=== PATIENT | male | born 1980 | race African-American/Black ===

== ENCOUNTER 2021-03-09 12:10 | Emergency (ER) | payer MEDICAID ==
[~2021-03-09] VITALS: Ht 175.3 cm; Wt 122.0 kg
[~2021-03-09 12:10] MED LIST: NORPTMEDS CO
[2021-03-09 13:29] LABS: Basophils # (auto) 0.1 10 ^3/uL (0-0.2); Basophils % (auto) 1.1 % (0.0-2.0); Eosinophils # (auto) 0.1 10 ^3/uL (0-0.8); Hematocrit 48.4 % (41.0-53.0); Lymphocytes # (auto) 2.7 10 ^3/uL (0.4-5.4); Lymphocytes % (auto) 41.4 % (10.0-50.0); Mean Corpuscular Hemoglobin 29.8 pg (28.0-32.0); Mean Corpuscular Volume 90.2 fL (80.0-100.0); Monocytes # (auto) 0.4 10 ^3/uL (0-1.3); Monocytes % (auto) 6.7 % (0.0-12.0); Neutrophils # (auto) 3.3 10 ^3/uL (1.6-8.6); Neutrophils % (auto) 49.8 % (37.0-80.0); Nucleated Red Blood Cells % 0.2 %; Platelet Count (auto) 259 10^3/uL (140-450); Red Blood Cells 5.37 10^6/uL (4.5-5.90); Red Cell Distribution Width 14.5 % (11.8-14.3); White Blood Cell 6.5 10^3/uL (4.4-10.8)
[2021-03-09 13:49] LABS: Albumin 3.8 g/dL (3.4-5.0); Magnesium 2.4 mg/dL (1.6-2.6)
[2021-03-09 13:53] LABS: BUN/Creatinine Ratio 10.3; Bilirubin, Total 0.4 mg/dL (0.2-1.0); Total Protein 8.3 g/dL (6.4-8.2)
[2021-03-09 14:06] VITALS: BP 171/110
[2021-03-09] MEDS ORDERED: cloNIDine HCL 0.1 MG TAB PO ONE (14:15)
== END 2021-03-09 15:50 | disposition home or self-care (01) ==
LOC: ER 12:10 → EDBD 12:10 → ER 15:50
DX: I47.1 Supraventricular tachycardia (principal); I10 Essential (primary) hypertension; Z88.1 Allergy status to other antibiotic agents; Z88.2 Allergy status to sulfonamides
CPT/HCPCS: 36415; 80053; 83735; 85025; 93005

== ENCOUNTER 2022-05-11 19:07 | Emergency (ER) | payer MEDICAID ==
[~2022-05-11] VITALS: Ht 172.7 cm; Wt 120.0 kg
[2022-05-11 20:54] LABS: Basophils # (auto) 0 10 ^3/uL (0-0.2); Basophils % (auto) 0.7 % (0.0-2.0); Eosinophils # (auto) 0.1 10 ^3/uL (0-0.8); Eosinophils % (auto) 0.9 % (0.0-7.0); Hematocrit 46.1 % (41.0-53.0); Hemoglobin 15.3 g/dL (13.5-17.5); Lymphocytes # (auto) 2.2 10 ^3/uL (0.4-5.4); Lymphocytes % (auto) 32.7 % (10.0-50.0); Mean Corpuscular Hemoglobin 29.8 pg (28.0-32.0); Mean Corpuscular Hgb Conc. 33.1 g/dL (32.0-36.0); Mean Corpuscular Volume 90.1 fL (80.0-100.0); Monocytes # (auto) 0.7 10 ^3/uL (0-1.3); Monocytes % (auto) 9.9 % (0.0-12.0); Neutrophils # (auto) 3.7 10 ^3/uL (1.6-8.6); Neutrophils % (auto) 55.8 % (37.0-80.0); Red Blood Cells 5.12 10^6/uL (4.5-5.90); Red Cell Distribution Width 13.8 % (11.8-14.3); White Blood Cell 6.6 10^3/uL (4.4-10.8)
[2022-05-11 21:11] LABS: Potassium 3.5 mmol/L (3.5-5.1)
[2022-05-11 21:12] LABS: INR 0.99 (0.9-1.15); Partial Thromboplastin Time 29.3 sec (24.6-33.4)
[2022-05-11 21:28] LABS: BUN/Creatinine Ratio 7.9; Bilirubin, Total 0.3 mg/dL (0.2-1.0); Total Protein 8.3 g/dL (6.4-8.2)
[2022-05-11 22:20] LABS: Urine Bacteria FEW /hpf (None Seen); Urine Blood Negative /uL (Negative); Urine Mucus FEW (None Seen); Urine Specific Gravity 1.035 (1.001-1.035); Urine WBC 2 /hpf (0 - 3)
[2022-05-12 00:15] VITALS: BP 180/116
== END 2022-05-12 01:34 | disposition home or self-care (01) ==
LOC: ER 19:07
DX: I16.0 Hypertensive urgency (principal); I10 Essential (primary) hypertension; R42 Dizziness and giddiness; Z88.1 Allergy status to other antibiotic agents; Z88.2 Allergy status to sulfonamides
CPT/HCPCS: 36415; 70450; 80053; 81001; 84484; 85025; 85610; 85730; 93005

== ENCOUNTER 2022-11-22 09:20 | Emergency (ER) | payer MEDICAID ==
[~2022-11-22] VITALS: Ht 172.7 cm; Wt 126.0 kg
[2022-11-22 09:45] LABS: Basophils # (auto) 0.1 10 ^3/uL (0-0.2); Basophils % (auto) 1.1 % (0.0-2.0); Eosinophils # (auto) 0.2 10 ^3/uL (0-0.8); Eosinophils % (auto) 3.5 % (0.0-7.0); Hemoglobin 15.6 g/dL (13.5-17.5); Lymphocytes # (auto) 2.3 10 ^3/uL (0.4-5.4); Lymphocytes % (auto) 36.9 % (10.0-50.0); Mean Corpuscular Hemoglobin 30.9 pg (28.0-32.0); Mean Corpuscular Hgb Conc. 34.6 g/dL (32.0-36.0); Mean Corpuscular Volume 89.2 fL (80.0-100.0); Monocytes # (auto) 0.5 10 ^3/uL (0-1.3); Monocytes % (auto) 7.5 % (0.0-12.0); Neutrophils # (auto) 3.2 10 ^3/uL (1.6-8.6); Nucleated Red Blood Cells % 0.1 %; Red Blood Cells 5.04 10^6/uL (4.5-5.90); White Blood Cell 6.2 10^3/uL (4.4-10.8)
[2022-11-22] MEDS ORDERED: ASPirin 81 mg TAB PO ONE (10:00)
[2022-11-22 10:03] LABS: Albumin 3.9 g/dL (3.4-5.0); Calcium 8.9 mg/dL (8.5-10.1)
[2022-11-22 10:06] LABS: BUN/Creatinine Ratio 9.3; Bilirubin, Total 0.4 mg/dL (0.2-1.0); Total Protein 7.4 g/dL (6.4-8.2)
[2022-11-22 10:21] LABS: Urine Bacteria NONE SEEN /hpf (None Seen); Urine Blood Negative /uL (Negative); Urine Mucus FEW (None Seen); Urine Specific Gravity 1.018 (1.001-1.035); Urine WBC <1 /hpf (0 - 3)
[2022-11-22] MEDS ORDERED: ONDA-144 PO (11:46)
[2022-11-22 13:29] VITALS: BP 155/97
== END 2022-11-22 13:32 | disposition home or self-care (01) ==
LOC: ER 09:20
DX: R10.9 Unspecified abdominal pain (principal); R11.10 Vomiting, unspecified; Z88.2 Allergy status to sulfonamides; Z88.8 Allergy status to other drugs, medicaments and biological substances; E78.5 Hyperlipidemia, unspecified; I10 Essential (primary) hypertension
CPT/HCPCS: 36415; 71045; 74176; 80053; 81001; 84484; 85025; 93005

== ENCOUNTER 2023-11-03 11:22 | Emergency (ER) | payer MEDICAID ==
[~2023-11-03] VITALS: Ht 172.7 cm; Wt 109.0 kg
[~2023-11-03 11:22] MED LIST changes: +ONDA-144 PO
[2023-11-03 11:56] LABS: Basophils # (auto) 0.1 10 ^3/uL (0-0.2); Basophils % (auto) 1.1 % (0.0-2.0); Eosinophils # (auto) 0.1 10 ^3/uL (0-0.8); Eosinophils % (auto) 0.8 % (0.0-7.0); Hematocrit 45.3 % (41.0-53.0); Hemoglobin 14.9 g/dL (13.5-17.5); Lymphocytes # (auto) 2.7 10 ^3/uL (0.4-5.4); Lymphocytes % (auto) 45.5 % (10.0-50.0); Mean Corpuscular Hemoglobin 29.5 pg (28.0-32.0); Mean Corpuscular Hgb Conc. 32.9 g/dL (32.0-36.0); Mean Corpuscular Volume 89.7 fL (80.0-100.0); Monocytes # (auto) 0.5 10 ^3/uL (0-1.3); Monocytes % (auto) 8.5 % (0.0-12.0); Neutrophils # (auto) 2.7 10 ^3/uL (1.6-8.6); Neutrophils % (auto) 44.1 % (37.0-80.0); Nucleated Red Blood Cells % 0.1 %; Red Blood Cells 5.04 10^6/uL (4.5-5.90); Red Cell Distribution Width 14.4 % (11.8-14.3)
[2023-11-03 12:11] LABS: Alanine Aminotransferase 20 U/L (7-40); Albumin 4.3 g/dL (3.2-4.8); Alkaline Phosphatase 104 U/L (46-116); Anion Gap 6 (5-15); Aspartate Aminotransferase 12 U/L (13-40); BUN/Creatinine Ratio 10.8 (10.0-20.0); Blood Urea Nitrogen 11 mg/dL (9-23); Calcium 9.2 mg/dL (8.7-10.4); Carbon Dioxide 25 mmol/L (20-30); Chloride 107 mmol/L (98-107); Glucose 99 mg/dL (74-106); Magnesium 1.9 mg/dL (1.6-2.6); Potassium 3.9 mmol/L (3.5-5.1); Sodium 138 mmol/L (136-145)
[2023-11-03 12:12] LABS: Bilirubin, Total 0.5 mg/dL (0.2-1.0); Total Protein 7.1 g/dL (5.7-8.2)
[2023-11-03 12:33] LABS: INR 1.03 (0.9-1.15); Partial Thromboplastin Time 31.1 SEC (24.5-34.5); Prothrombin Time 10.8 sec (9.3-11.8)
[2023-11-03 16:52] VITALS: BP 187/116; PULSE 61; RESP 18; TEMP 99.3; O2SAT 98
== END 2023-11-03 16:53 | disposition home or self-care (01) ==
LOC: EDBD 11:22 → ER 11:22
DX: R00.2 Palpitations (principal); R42 Dizziness and giddiness; I10 Essential (primary) hypertension; E78.5 Hyperlipidemia, unspecified; Z88.1 Allergy status to other antibiotic agents; Z88.2 Allergy status to sulfonamides
CPT/HCPCS: 36415; 71045; 80053; 83735; 83880; 84484; 85025; 85610; 85730; 93005

== ENCOUNTER 2025-04-06 00:14 | Emergency (ER) | payer MEDICAID ==
[~2025-04-06] VITALS: Ht 170.2 cm; Wt 131.0 kg
--- NOTE | 2025-04-06 00:40 | ED.PDOC ---
General HPI Comments 44-year-old male with a history of hypertension, dyslipidemia and kidney stones brought in by family complaining of right flank pain. Patient states since 5:00 p.m. yesterday, he has been having constant, aching right flank pains, radiating to his back, associated with chills, nausea and vomiting. Patient states pain is similar to when he had kidney stones before. Patient states he took ibuprofen 800 mg without relief. He denies any fever, diarrhea, constipation, dysuria or hematuria. Chief Complaint: Flank Pain Time Seen by MD: 00:40 Primary Care Provider: HOME Reviewed notes: Nurses Notes Allergies: Coded Allergies: Sulfamethoxazole w/Trimethoprim (Verified Allergy, Mild, HIVES/ RASH, 03/22/10) Clindamycin (Verified Allergy, Unknown, 03/09/21) Doxycycline (Verified Allergy, Unknown, HIVES/ RASH, 03/09/21) Cephalexin (Verified Adverse Reaction, Mild, 03/06/10) Home Meds Active Scripts Tamsulosin Hcl (Flomax) 0.4 Mg Cap, 1 CAP PO DAILY, #20 CAP 11 Refills Prov:KIMBER LOVE MD 04/06/25 Ondansetron Odt 4MG Tab (ZOFRAN PO) 4 Mg Tb, 4 MG PO TID PRN, #30 TAB Prn nausea/vomiting ODT TAB-DISSOLVE IN MOUTH, THEN SWALLOW Prov:KIMBER LOVE MD 04/06/25 Hydrocodone-Acetaminophen (Hydrocodone Bitartrate/AC 10-325 mg) 1 Tab Tab, 1-2 TAB PO Q6HP PRN, #30 TAB Prn pain Prov:KIMBER LOVE MD 04/06/25 Ondansetron (Zofran) 4 Mg Tab, 1 TAB PO Q6HR, #20 TAB Prov:TAMMY KAN MD 11/22/22 Reported Medications No Reported Medication (NO REPORTED MEDICATION) Ea, Candida CO UNK PATIENT HAS NO REPORTED MEDICATIONS 07/28/13 Information Source: Patient Mode of Arrival: Ambulatory Severity: Moderate Inability to void: Mild Timing: Hours Duration: Intermittent Has not urinated for: Minutes Prehospital treatment: Treatment History of: Kidney stone Location: (R) Flank associated signs and symptoms: Fever, Nausea, Vomiting, Flank Pain, Back Pain Past Medical History PAST MEDICAL HISTORY: High Lipids, HTN, Kidney Stones Surgical History (Other): Circumcision Family History Family History: Family hx of DM, Family hx of HTN Social History Smoker: Non-Smoker Alcohol: Denies ETOH Use Drugs: Denies Drug Use Lives In: Home Constitutional: denies: chills, diaphoresis, fatigue, fever, malaise, sweats, weakness, others EENTM: denies: blurred vision, double vision, ear bleeding, ear discharge, ear drainage, ear pain, ear ringing, eye pain, eye redness, hearing loss, mouth pain, mouth swelling, nasal discharge, nose bleeding, nose congestion, nose pain, photophobia, tearing, throat pain, throat swelling, voice changes, others Respiratory: denies: cough, hemoptysis, orthopnea, SOB at rest, shortness of breath, SOB with excertion, stridor, wheezing, others Cardiovascular: denies: chest pain, dizzy spells, diaphoresis, Dyspnea on exertion, edema, irregular heart beat, left arm pain, lightheadedness, palpitations, PND, syncope, others Gastrointestinal: reports: nausea, vomiting; denies: abdomen distended, a bdominal pain, blood streaked bowels, constipated, diarrhea, dysphagia, difficulty swallowing, hematemesis, melena, poor appetite, poor fluid intake, rectal bleeding, rectal pain, others Genitourinary: reports: flank pain; denies: burning, dysuria, frequency, hematuria, incontinence, penile discharge, penile sore, pain, testicle pain, testicle swelling, urgency, others Neurological: denies: dizziness, fainting, headache, left sided numbness, left sided weakness, numbness, paresthesia, pre-existing deficit, right sided numbness, right sided weakness, seizure, speech problems, tingling, tremors, weakness, others Musculoskeletal: reports: back pain; denies: gout, joint pain, joint swelling, muscle pain, muscle stiffness, neck pain, others Integumetry: denies: bruises, change in color, change in hair/nails, dryness, laceration, lesions, lumps, rash, wounds, others Allergic/Immunocompromised: denies: Difficulty Healing, Frequent Infections, Hives, Itching, others Hematologic/Lymphatic: denies: anemia, blood clots, easy bleeding, easy bruising, swollen glands, others Endocrine: denies: excessive hunger, excessive sweating, excessive thirst, excessive urination, flushing, intolerance to cold, intolerance to heat, unexplained weight gain, unexplained weight loss, others Psychiatric: denies: anxiety, bipolar disorder, depression, hopeless, panic disorder, schizophrenia, sleepless, suicidal, others Physical Exam General Appearance: Mild Distress, Obese HEENT: Other (Pupils and face symmetric. Moist mucous membranes.) Neck: Full Range of Motion, Normal Inspection Respiratory: Lungs Clear, No Accessory Muscle Use, No Respiratory Distress, Normal Breath Sounds Cardiovascular: No Edema, No JVD, Regular Rate/Rhythm Breast Exam: Deferred Gastrointestinal: Soft, Other (Right upper flank tenderness to palpation) Genitalia: Deferred Pelvic: Deferred Rectal: Deferred Extremities: Normal inspection, Normal range of motion, Non-tender, No pedal ed abigail Neurologic: Alert (Oriented x4), Normal Affect, Normal Mood, Other (Ambulatory) Cerebellar Function: NOT DONE Reflexes: NOT DONE Skin: Dry, Normal Color, Warm Lymphatic: NOT DONE Was a procedure done? Was a procedure done?: No Differential Diagnosis Kidney stone (Female): N/A Kidney stone (Male): Pyelonephritis, Renal failure, Strain, Urinary obstruction, Urolithiasis, Renal infarction, Urinary tract infection X-Ray, Labs, Meds, VS Vital Signs Date Time Temp Pulse Resp B/P (MAP) Pulse Ox O2 Delivery O2 Flow Rate FiO2 04/06/25 03:00 90 19 134/72 (92) 95 04/06/25 02:58 90 19 134/72 04/06/25 02:28 89 12 159/96 04/06/25 01:41 92 11 166/101 (122) 95 04/06/25 01:38 90 13 166/101 04/06/25 01:27 Room Air* 0 21 04/06/25 01:21 98.6 85 18 181/96 (124) 97 98.6 04/06/25 01:08 89 18 162/107 04/06/25 00:35 98.4 89 18 162/107 (125) 97 98.4 04/06/25 00:35 89 18 97 Room Air 04/06/25 00:35 98.4 88 18 162/107 (125) 97 98.4 Lab Test 04/06/25 01:30 04/06/25 00:49 Range/Units Urine Color Colorless Yellow Urine Clarity Turbid H Clear Urine pH 8.0 5.0-9.0 Urine Specific [place] 1.015 1.001-1.035 Urine Protein Negative Negative Urine Ketones 1+ H Negative Urine Blood Negative Negative /uL Urine Nitrite Negative Negative Urine Bilirubin Negative Negative Urine Urobilinogen Normal Negative mg/dL Urine Leukocyte Esterase Negative Negative /uL Urine RBC 6 0 - 3 /hpf Urine Microscopic WBC < 1 0-3 /HPF Urine Squamous Epithelial Cells None seen <5 /hpf Urine Bacteria None seen None Seen /hpf Urine Glucose Normal Normal mg/dL White Blood Count 10.1 4.4-10.8 10^3/uL Red Blood Count 5.13 4.5-5.90 10^6/uL Hemoglobin 15.2 13.5-17.5 g/dL Hematocrit 46.1 41.0-53.0 % Mean Corpuscular Volume 89.8 80.0-100.0 fL Mean Corpuscular Hemoglobin 29.6 28.0-32.0 pg Mean Corpuscular Hemoglobin Concent 33.0 32.0-36.0 g/dL Red Cell Distribution Width 14.2 11.8-14.3 % Platelet Count 252 140-450 10^3/uL Mean Platelet Volume 8.9 6.9-10.8 fL Neutrophils (%) (Auto) 67.4 37.0-80.0 % Lymphocytes (%) (Auto) 23.8 10.0-50.0 % Monocytes (%) (Auto) 7.9 0.0-12.0 % Eosinophils (%) (Auto) 0.4 0.0-7.0 % Basophils (%) (Auto) 0.5 0.0-2.0 % Neutrophils # (Auto) 6.8 1.6-8.6 10 ^3/uL Lymphocytes # (Auto) 2.4 0.4-5.4 10 ^3/uL Monocytes # (Auto) 0.8 0-1.3 10 ^3/uL Eosinophils # (Auto) 0 0-0.8 10 ^3/uL Basophils # (Auto) 0.1 0-0.2 10 ^3/uL Nucleated Red Blood Cells 0.1 % Sodium Level 142 136-145 mmol/L Potassium Level 4.1 3.5-5.1 mmol/L Chloride Level 107 98-107 mmol/L Carbon Dioxide Level 25 20-31 mmol/L Anion Gap 10 5-15 Blood Urea Nitrogen 15 9-23 mg/dL Creatinine 1.45 H 0.700-1.30 mg/dL Glomerular Filtration Rate Calc 61 >90 mL/min BUN/Creatinine Ratio 10.3 10.0-20.0 Serum Glucose 125 H 74-106 mg/dL Lactic Acid Level 1.7 0.4-2.0 mmol/L Calcium Level 9.5 8.7-10.4 mg/dL Total Bilirubin 0.3 0.2-1.0 mg/dL Aspartate Amino Transferase (AST) 24 13-40 U/L Alanine Aminotransferase (ALT) 37 7-40 U/L Alkaline Phosphatase 141 H 46-116 U/L Total Protein 7.8 5.7-8.2 g/dL Albumin 4.5 3.2-4.8 g/dL Current Medications Medications (Trade) Dose Ordered Sig/Suzanne Route Start Time Stop Time Status Last Admin Sodium Chloride 1,000 ml @ 1,000 mls/hr Q1H ONCE IV 04/06/25 00:30 04/06/25 01:29 DC 04/06/25 00:54 Morphine Sulfate 4 mg ONCE ONCE IV 04/06/25 00:30 04/06/25 00:33 DC 04/06/25 01:08 Ondansetron HCl (Zofran) 4 mg ONCE ONCE IV 04/06/25 00:30 04/06/25 00:33 VT 04/06/25 01:09 Magnesium Sulfate/ Dextrose 100 ml @ 100 mls/hr O IV 04/06/25 00:30 04/06/25 03:40 VT 04/06/25 02:27 Ketorolac Tromethamine (Toradol Injection) 15 mg ONCE ONCE IV 04/06/25 02:15 04/06/25 02:16 DC 04/06/25 02:27 Hydromorphone HCl (Dilaudid Injection) 1 mg ONCE ONCE IV 04/06/25 02:15 04/06/25 02:16 DC 04/06/25 02:28 PROCEDURE(s): ABPL - CT AB PEL WO CON-NO ORAL OR IV REASON: R flank pain r/o stone ORDER NUMBER(s): [id number], ACCESSION NUMBER(s): [id number] CLINICAL HISTORY: R flank pain r/o stone TECHNIQUE: CT of the abdomen and pelvis was performed without intravenous contrast. This exam was performed according to our departmental dose optimization program. Up-to-date CT equipment and radiation dose reduction techniques are utilized as appropriate. CTDI: 24.76+ 0.14 DLP: 1461.35 WID: COMPARISON: CT ABD PELVIS WO CONTRAST on DOS: 11/22/22 FINDINGS: Lower Thorax: Unremarkable. Liver and Biliary system: Unremarkable. Spleen: Unremarkable. Adrenal Glands and Kidneys: Normal adrenal glands. There is an obstructing 5 mm calculus in the proximal right ureter causing mild right hydroureteronephrosis. Additional nonobstructing bilateral renal calculi. There is asymmetric right perinephric and periureteral soft tissue stranding. Pancreas and Retroperitoneum: Unremarkable. Aorta and Major Vessels: Aortoiliac vessels are normal in caliber. Bowel, Mesentery and Peritoneal space: Normal caliber small and large bowel. Normal appendix. There is no free air or fluid collection. Pelvis: Dystrophic ossification in the prostate gland. There is no pelvic lymphadenopathy. Urinary bladder is mildly distended. Abdominal wall and Osseous Structures: Small fat containing bilateral inguinal and umbilical hernias. No destructive osseous lesion. IMPRESSION: Obstructing 5 mm calculus in the proximal right ureter causing mild right hydroureteronephrosis. Additional nonobstructing bilateral renal calculi. X-Ray, Labs, Meds, VS Comment 44-year-old male with a history of kidney stones, hypertension and dyslipidemia brought in by family complaining of right flank pain radiating to the right mid back Vitals remarkable for BP 162/107 Exam remarkable for right flank tenderness to palpation Rhythm strip independently interpreted by me: Sinus rhythm, rate 89, no ectopy. CT abdomen and pelvis IMPRESSION: Obstructing 5 mm calculus in the proximal right ureter causing mild right hydrou reteronephrosis. Additional nonobstructing bilateral renal calculi. CBC unremarkable. Metabolic panel remarkable for creatinine 1.45, lactate normal, UA positive for ketones and RBCs Patient treated with the following in the ED: 1 L 0.9 normal saline IV bolus, morphine 4 mg IV, Zofran 4 mg IV, Dilaudid 1 mg IV, Toradol 15 mg IV On re-evaluation, patient states pain has improved. Vitals were stable. Patient appears stable for discharge with close outpatient follow-up with [place] for referral to an urologist. Rx Randy White Flomax Time of 1ST Reevaluation: 00:36 Reevaluation 1ST: Unchanged Patient Education/Counseling: Diagnosis, Treatment Family Education/Counseling: No Family Present SEPSIS Sepsis Screen Physician Orders Ct Ab Pel Wo Con-No Oral Or Iv (04/06/25 00:28) Blood Culture (04/06/25 00:28) Vital Signs Date Time Temp Pulse Resp B/P (MAP) Pulse Ox O2 Delivery O2 Flow Rate FiO2 04/06/25 03:00 90 19 134/72 (92) 95 04/06/25 02:58 90 19 134/72 04/06/25 02:28 89 12 159/96 04/06/25 01:41 92 11 166/101 (122) 95 04/06/25 01:38 90 13 166/101 04/06/25 01:27 Room Air* 0 21 04/06/25 01:21 98.6 85 18 181/96 (124) 97 98.6 04/06/25 01:08 89 18 162/107 04/06/25 00:35 98.4 89 18 162/107 (125) 97 98.4 04/06/25 00:35 89 18 97 Room Air 04/06/25 00:35 98.4 88 18 162/107 (125) 97 98.4 Laboratory Tests Test 04/06/25 00:49 Lactic Acid Level 1.7 mmol/L (0.4-2.0) White Blood Count 10.1 10^3/uL (4.4-10.8) Medications Medications Dose Ordered Sig/Suzanne Route Start Time Stop Time Status Last Admin Dose Admin Hydromorphone HCl 1 mg ONCE ONCE IV 04/06/25 02:15 04/06/25 02:16 DC 04/06/25 02:28 Ketorolac Tromethamine 15 mg ONCE ONCE IV 04/06/25 02:15 04/06/25 02:16 DC 04/06/25 02:27 Magnesium Sulfate/ Dextrose 100 ml @ 100 mls/hr O IV 04/06/25 00:30 04/06/25 03:40 DC 04/06/25 02:27 Morphine Sulfate 4 mg ONCE ONCE IV 04/06/25 00:30 04/06/25 00:33 DC 04/06/25 01:08 Ondansetron HCl 4 mg ONCE ONCE IV 04/06/25 00:30 04/06/25 00:33 DC 04/06/25 01:09 Sodium Chloride 1,000 ml @ 1,000 mls/hr Q1H ONCE IV 04/06/25 00:30 04/06/25 01:29 DC 04/06/25 00:54 Departure 1 Departure Time of Disposition: 02:13 Impression: Primary Impression: Hydronephrosis concurrent with and due to calculi of kidney and ureter Disposition: HOME / SELF CARE / HOMELESS Condition: Stable Additional Instructions: Your CT scan showed you have a kidney stone on the right side. I have enclosed a report below. I have prescribed medication to treat your symptoms. Follow-up with your primary doctor in 1-2 days for referral to an urologist for further evaluation of your kidney stone. [place] [id number] Ph: [phone] DIAGNOSTIC IMAGING Diagnostic Imaging Report : [id number] Signed PATIENT: MIESHA CIFUENTES ACCT: [id number] UNIT: [id number] : 1980 LOC: ER ROOM / BED: / AGE / SEX: 44 / M ADM STATUS: REG ER SERVICE [id number] ORDERING PHYSICIAN: KIMBER LOVE MD PROCEDURE(s): ABPL - CT AB PEL WO CON-NO ORAL OR IV REASON: R flank pain r/o stone ORDER NUMBER(s): [id number], ACCESSION NUMBER(s): [id number] CLINICAL HISTORY: R flank pain r/o stone TECHNIQUE: CT of the abdomen and pelvis was performed without intravenous c ontrast. This exam was performed according to our departmental dose optimization program. Up-to-date CT equipment and radiation dose reduction techniques are utilized as appropriate. CTDI: 24.76+ 0.14 DLP: 1461.35 WID: COMPARISON: CT ABD PELVIS WO CONTRAST on DOS: 11/22/22 FINDINGS: Lower Thorax: Unremarkable. Liver and Biliary system: Unremarkable. Spleen: Unremarkable. Adrenal Glands and Kidneys: Normal adrenal glands. There is an obstructing 5 mm calculus in the proximal right ureter causing mild right hydroureteronephrosis. Additional nonobstructing bilateral renal calculi. There is asymmetric right perinephric and periureteral soft tissue stranding. Pancreas and Retroperitoneum: Unremarkable. Aorta and Major Vessels: Aortoiliac vessels are normal in caliber. Bowel, Mesentery and Peritoneal space: Normal caliber small and large bowel. Normal appendix. There is no free air or fluid collection. Pelvis: Dystrophic ossification in the prostate gland. There is no pelvic lymphadenopathy. Urinary bladder is mildly distended. Abdominal wall and Osseous Structures: Small fat containing bilateral inguinal and umbilical hernias. No destructive osseous lesion. IMPRESSION: Obstructing 5 mm calculus in the proximal right ureter causing mild right hy droureteronephrosis. Additional nonobstructing bilateral renal calculi. e-Prescriptions Tamsulosin Hcl (Flomax) 0.4 Mg Cap 1 CAP PO DAILY, #20 CAP 11 Refills Prov: KIMBER LOVE MD 04/06/25 Ondansetron Odt 4MG Tab (ZOFRAN PO) 4 Mg Tb 4 MG PO TID PRN, #30 TAB Prn nausea/vomiting ODT TAB-DISSOLVE IN MOUTH, THEN SWALLOW Prov: KIMBER LOVE MD 04/06/25 Hydrocodone-Acetaminophen (Hydrocodone Bitartrate/AC 10-325 mg) 1 Tab Tab 1-2 TAB PO Q6HP PRN, #30 TAB Prn pain Prov: KIMBER LOVE MD 04/06/25 Discharged With: Spouse Critical Care Note Critical Care Time?: No Stability Stability form required: No Heart Score Heart Score: Heart Score Response (Comments) Value History N/A 0 EKG N/A 0 Age N/A 0 Risk Factors N/A 0 Troponin N/A 0 Total 0 I personally scribed for KIMBER LOVE MD ([email or web address]) on 04/06/25 at 00:40. Electronically submitted by Maxwell Roque ([email or web address]). KIMBER LOVE MD Apr 06, 2025 00:40
[2025-04-06] MEDS: SODIUM CHLORIDE 0.9% 1,000 ML IV ONE (00:54)
[2025-04-06] MEDS: MAGNESIUM SULFATE 1GM/100ML 100 ML IV SCH (01:07)
[2025-04-06 01:08] LABS: Hematocrit 46.1 % (41.0-53.0); Hemoglobin 15.2 g/dL (13.5-17.5); Mean Corpuscular Hemoglobin 29.6 pg (28.0-32.0); Mean Corpuscular Volume 89.8 fL (80.0-100.0); Nucleated Red Blood Cells % 0.1 %
[2025-04-06] MEDS: MORPHINE SULFATE 4 MG/ML SYR/VIAL IV ONE (01:08)
[2025-04-06] MEDS: ONDANSETRON HCL 4 MG/2 ML VIAL IV ONE (01:09)
[2025-04-06 01:21] VITALS: TEMP 98.6
[2025-04-06 01:21] LABS: Alanine Aminotransferase 37 U/L (7-40); Albumin 4.5 g/dL (3.2-4.8); Anion Gap 10 (5-15); BUN/Creatinine Ratio 10.3 (10.0-20.0); Bilirubin, Total 0.3 mg/dL (0.2-1.0); Blood Urea Nitrogen 15 mg/dL (9-23); Calcium 9.5 mg/dL (8.7-10.4); Carbon Dioxide 25 mmol/L (20-31); Chloride 107 mmol/L (98-107); Potassium 4.1 mmol/L (3.5-5.1); Sodium 142 mmol/L (136-145); Total Protein 7.8 g/dL (5.7-8.2)
[2025-04-06 01:28] LABS: Alkaline Phosphatase 141 U/L (46-116); Glucose 125 mg/dL (74-106)
[2025-04-06 01:53] LABS: Urine Protein, UAD Negative (Negative)
--- NOTE | 2025-04-06 01:54 | DVH ---
CLINICAL HISTORY: R flank pain r/o stone TECHNIQUE: CT of the abdomen and pelvis was performed without intravenous contrast. This exam was per formed according to our departmental dose optimization program. Up-to-date CT equipment and radiation dose reduction techniques are utilized as appropriate. CTDI: 24.76+ 0.14 DLP: 1461.35 WID: COMPARISON: CT ABD PELVIS WO CONTRAST on DOS: 11/22/22 FINDINGS: Lower Thorax: Unremarkable. Liver and Biliary system: Unremarkable. Spleen: Unremarkable. Adrenal Glands and Kidneys: Normal adrenal glands. There is an obstructing 5 mm calculus in the proxi mal right ureter causing mild right hydroureteronephrosis. Additional nonobstructing bilateral renal calculi. There is asymmetric right perinephric and periureteral soft tissue stranding. Pancreas and Retroperitoneum: Unremarkable. Aorta and Major Vessels: Aortoiliac vessels are normal in caliber. Bowel, Mesentery and Peritoneal space: Normal caliber small and large bowel. Normal appendix. There i s no free air or fluid collection. Pelvis: Dystrophic ossification in the prostate gland. There is no pelvic lymphadenopathy. Urinary bl adder is mildly distended. Abdominal wall and Osseous Structures: Small fat containing bilateral inguinal and umbilical hernias. No destructive osseous lesion. IMPRESSION: Obstructing 5 mm calculus in the proximal right ureter causing mild right hydroureteronephrosis. Additional nonobstructing bilateral renal calculi.
[2025-04-06] MEDS ORDERED: HYDR-4798 PO (02:20)
[2025-04-06] MEDS ORDERED: ZOFR4T PO (02:20)
[2025-04-06] MEDS ORDERED: TAMS-35 PO (02:20)
[2025-04-06] MEDS: KETOROLAC TROMETH 30 MG/ML 1ML VIAL IV ONE (02:27)
[2025-04-06] MEDS: HYDROmorphone HCL 2 MG/ML VL/or syr IV ONE (02:28)
[2025-04-06] MEDS: MAGNESIUM SULFATE 1GM/100ML 100 ML IV ONE (02:40)
[2025-04-06 03:00] VITALS: BP 134/72; PULSE 90; RESP 19; O2SAT 95
== END 2025-04-06 03:41 | disposition home or self-care (01) ==
LOC: ER 00:14
DX: N13.2 Hydronephrosis with renal and ureteral calculous obstruction (principal); E78.5 Hyperlipidemia, unspecified; I10 Essential (primary) hypertension; Z88.2 Allergy status to sulfonamides; Z88.1 Allergy status to other antibiotic agents
CPT/HCPCS: 36415; 74176; 80053; 81001; 83605; 85025; 87040; 96365; 96366; 96375; 99285; J1171; J1885; J2270; J2405; J3475